=== PATIENT | male | born 1980 | race Caucasian/White ===

== ENCOUNTER 2022-09-30 06:44 | Day surgery (SDC) | payer OTHER ==
[~2022-09-30] VITALS: Ht 180.3 cm; Wt 106.8 kg
--- NOTE | ~2022-09-30 | OR ---
[facility] [address] [place], [place] [address] Draft DATE OF OPERATION: 09/30/2022 SURGEON: Hector Cortes MD PREOPERATIVE DIAGNOSIS: Oral lesions. POSTOPERATIVE DIAGNOSIS: Oral lesions. PROCEDURE: Excision of oral lesions x2. 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 Hodgson is a 42-year-old male with leukoplakic lesions, papillary, one on each buccal mucosa posteriorly. We have been observing these, treating him conservatively for several months. He is taken to the operating room for excisional biopsy. OPERATIVE PROCEDURE AND FINDINGS: After informed consent, the patient was taken to the operating room, placed in supine position, where general LMA anesthesia was induced. The patient and procedure were verified. Headlight and retractor exam of the oral cavity showed lesions on both buccal mucosa posteriorly adjacent to the molars, right side was approached first. The lesion was whitish, exophytic, papillary. The lesion both sides injected with 1% lidocaine with epi, total of 8 mL. The right side was excised first with a millimeter to margins of the needle point cautery. Deep excision down to muscle. Minimal bleeding stopped afterwards with coag. The excision was about 2 cm in length. The wound was closed with 4-0 interrupted chromic. The left side was then approached, similar findings slightly more exophytic, similar-sized, identical procedure performed, closure with 4-0 chromic. The lesions were then sent to Pathology separately, right and left buccal lesions. Hemostasis was verified. The pharynx was suctioned clear of blood secretions. The patient was then awakened, extubated, and transported to the recovery room in good condition. No complications. BLOOD LOSS: PATIENT NAME: ARABELLA HODGSON OPERATIVE REPORT DATE OF : 84 REPORT #: [id number] PHYSICIAN: HECTOR CORTES MD PCP: JENELLE VASQUEZ MD REPORT IS CONFIDENTIAL AND NOT TO BE RELEASED WITHOUT AUTHORIZATION [facility] [address] [place] [address] [place], [place] [address] [employer]. SPECIMEN: To Pathology. DRAINS: No drains. Hector Cortes MD /SHYLA /[id number] Copies: ~ PATIENT NAME: ARABELLA HODGSON OPERATIVE REPORT DATE OF : 84 REPORT #: [id number] PHYSICIAN: HECTOR CORTES MD PCP: JENELLE VASQUEZ MD REPORT IS CONFIDENTIAL AND NOT TO BE RELEASED WITHOUT AUTHORIZATION
[~2022-09-30 06:44] MED LIST: ABILIFY2 MG PO; LIPITOR20 MG; PAXIL20 MG PO
[2022-09-30] MEDS ORDERED: ATIVAN2 MG PO (07:00)
--- NOTE | 2022-09-30 09:33 | NUR ---
09/30/22 0933 Nidia Lloyd 0963 PATIENT ARRIVES TO PACU UNRESPONSIVE TO PAIN. ORAL AIRWAY IN PLACE. ALSO NEEDS RN TO HOLD JAW THRUST. RESP EVEN AND UNLABORED, WITH INTERVENTION, INTIAL SATS 92% ON 6 LITERS, INCREASED TO 10 LITERS VIA MASK.
--- NOTE | 2022-09-30 09:53 | NUR ---
PT IS BACK TO FROM PACU. HE IS AT HIS BASELINE UPON ARRIVAL. CALL LIGHT WITHIN REACH. IS AT THE BEDSIDE. HE IS TOLERATING WATER. NO COMPLAINTS OF PAIN AT THIS TIME. PT REQUESTS CHOCOLATE PUDDING. NO ADDITIONAL NEEDS OR CONCERNS AT THIS TIME. DC CRITERIA ARE REVIEWED WITH PT AND .
--- NOTE | 2022-09-30 10:31 | NUR ---
LE 1025: PT IS ASSISTED UP OOB WITH STANDBY ASSIST TO USE THE RESTROOM. HE IS ABLE TO VOID 100MLS OF DARK YELLOW URINE. HE REPORTS FEELING GOOD. HE IS TOLERATING WATER AND PUDDING WITHOUT ISSUE.
--- NOTE | 2022-09-30 10:47 | NUR ---
PT HAS MET ALL DC CRITERIA. HE AND ARE GIVEN VERBAL AND WRITTEN DC INSTRUCTIONS. QUESTIONS ARE ASKED AND ANSWERED. PT IS EDUCATED ON HOW TO BEST DRESS HIMSELF AND TO OPEN CURTAIN WHEN READY.
--- NOTE | 2022-09-30 11:05 | NUR ---
LE 1055: PT IS TAKEN TO PERSONAL VEHICLE VIA WC, WHERE HE IS ABLE TO SAFELY TRANSFER HIMSELF WITHOUT ISSUE.
--- NOTE | 2022-10-02 13:17 | PATH ---
[facility] [address] [place], [place] [address] Signed SPECIMEN(S): A RIGHT BUCCAL LESION SPECIMEN(S): B LEFT BUCCAL LESION SPECIMEN SOURCE: A. RIGHT BUCCAL LESION B. LEFT BUCCAL LESION CLINICAL HISTORY: Oral lesions x2. FINAL PATHOLOGIC DIAGNOSIS: A. Right buccal lesion, excision: - Epithelial hyperplasia with parakeratosis, submucosal chronic inflammation and fibrosis. - Negative for dysplasia or malignancy. B. Left buccal lesion, excision: - Epithelial hyperplasia with focal parakeratosis, submucosal chronic inflammation, vascular congestion and fibrosis, and benign minor salivary gland tissue. - Negative for dysplasia or malignancy. AMB:[facility]:C2NR MICROSCOPIC EXAMINATION: Histologic sections of all submitted blocks are examined by light microscopy. These findings, together with the gross examination, support the pathologic diagnosis. GROSS DESCRIPTION: Two specimens are received in two containers, labeled "Prevot, A." A. The specimen, labeled "Prevot, A," and designated on the requisition "right buccal lesion," is received in formalin and consists of a 1.6 x 0.9 x 0.4 cm unoriented portion of possible mucosa. The mucosal surface is rose-white and roughened. The specimen is inked, sectioned and entirely submitted in cassette (A1). B. The specimen, labeled "Prevot, A," and designated on the requisition "left buccal lesion," is received in formalin and consists of a 1.6 x 1.4 x 0.8 cm unoriented portion of the possible mucosa. The mucosal surface is rose-white and nodular. The specimen is inked, sectioned, and entirely submitted in cassette (B1). FB (under the direct supervision of a pathologist) The Gross Description was prepared using a voice recognition system. The report PATIENT NAME: ARABELLA HODGSON PATHOLOGY DATE OF : 84 REPORT #: [id number] PHYSICIAN: GISELE YANG PCP: JENELLE VASQUEZ MD REPORT IS CONFIDENTIAL AND NOT TO BE RELEASED WITHOUT AUTHORIZATION [facility] [address] [place], [place] [address] Signed was reviewed for accuracy; however, sound-alike word errors, addition and/or deletions may occur. If there is any question about this report, please contact Client Services. PERFORMING LABORATORY: The technical component was performed by [facility], [address] [place] [address] (CLIA# [id number]). Professional interpretation was performed by [facility], [address] [address] (CLIA#: [id number]). Diagnostician: Clemencia Farias MD Pathologist Electronically Signed 10/02/2022 Copies: ~ PATIENT NAME: ARABELLA HODGSON PATHOLOGY DATE OF : 84 REPORT #: [id number] PHYSICIAN: GISELE PATHOLOGY PCP: JENELLE VASQUEZ MD REPORT IS CONFIDENTIAL AND NOT TO BE RELEASED WITHOUT AUTHORIZATION
== END 2022-09-30 10:58 | disposition home or self-care (01) ==
LOC: OPS 06:44 → DS 06:44 → OPS 07:30
PROVIDERS: ATTEND Otolaryngology
PROC: 0CB4XZZ Excision of Buccal Mucosa, External Approach (ICD-10-PCS; principal; 2022-09-30 09:00)
DX: K13.5 Oral submucous fibrosis (principal); L85.9 Epidermal thickening, unspecified; K13.70 Unspecified lesions of oral mucosa
CPT/HCPCS: 00170; J0131; J1100; J2001; J2250; J2405; J2704; J3010; J7121